=== PATIENT | male | born 1950 ===

== ENCOUNTER 2017-01-23 11:38 | Emergency (ER) | payer BC ==
--- NOTE | 2017-01-23 12:29 | UC ---
Skin Complaint HPI - HPI Summary HPI Summary: wound infection right calf 3 days had a mole removed from right calf 10 days ago , had [address] now the area is red , tender, + discharge no fever, no chills - History of Current Complaint Chief Complaint: [facility] Time Seen by Provider: 01/23/17 11:53 Stated Complaint: SOFT TISSUE COMPLAINT Hx Obtained From: Patient Onset/Duration: Gradual Onset, Lasting Days - 3, Still Present Timing: Constant Onset Severity: Mild Current Severity: Mild Location: Other - right calf Character: Pain, Redness Aggravating: Touch Alleviating: Nothing Associated Signs & Symptoms: Positive: Drainage, Tenderness - Allergy/Home Medications Allergies/Adverse Reactions: Allergies Allergy/AdvReac Type Severity Reaction Status Date / Time No Known Allergies Allergy Verified 01/23/17 11:43 Home Medications: Home Medications Aspirin [Aspirin 81 MG TAB] 81 mg PO 01/23/17 [History] Multiple Vitamins W/ Minerals [Multivitamin Men 50+] 1 tab PO 01/23/17 [History] Review of Systems Constitutional: Negative Skin: Negative Eyes: Negative ENT: Negative Respiratory: Negative All Other Systems Reviewed And Are Negative: Yes PMH/Surg Hx/FS Hx/Imm Hx Previously Healthy: Yes - Surgical History Surgical History: None - Family History Known Family History: Negative: Diabetes - Social History Alcohol Use: Weekly Substance Use Type: None Smoking Status (MU): Never Smoked Tobacco Physical Exam Triage Information Reviewed: Yes Appearance: Well-Appearing, No Pain Distress, Well-Nourished Vital Signs: Initial Vital Signs Temp 98.3 F 01/23/17 11:39 Pulse 62 01/23/17 11:39 Resp 18 01/23/17 11:39 BP 131/70 01/23/17 11:39 Pulse Ox 98 01/23/17 11:39 Vital Signs Reviewed: Yes Eyes: Positive: Conjunctiva Clear ENT Exam: Normal ENT: Positive: Normal ENT inspection, Hearing grossly normal, Pharynx normal Neck exam: Normal Neck: Positive: Supple, Nontender, No Lymphadenopathy Respiratory: Positive: Chest non-tender, Lungs clear, Normal breath sounds Cardiovascular: Positive: RRR, No Murmur, Pulses Normal Skin: Positive: Other - + abrastion right calf s/p mole removal with [address], + erythema, mild tenderness, Course/Dx - Diagnoses Provider Diagnoses: wound infection right calf Discharge - Discharge Plan Condition: Stable Disposition: HOME Prescriptions: Cephalexin CAP* [Keflex CAP*] 500 mg PO TID #21 cap Patient Education Materials: Wound Infection (ED) Referrals: Galina Mares MD [Primary Care Provider] - If Needed
== END 2017-01-23 12:40 | disposition home or self-care (01) ==
LOC: UCEAST 11:38
DX: T81.4XXA Infection following a procedure, initial encounter (principal); B99.9 Unspecified infectious disease
CPT/HCPCS: 99202; G0463